=== PATIENT | female | born 1985 | race Caucasian/White ===

== ENCOUNTER 2023-08-03 04:41 | Outpatient (CLI) | payer OTHER ==
[2023-08-03 05:42] VITALS: BP 103/71
[2023-08-03 05:48] LABS: BASOPHILS % (AUTO) 0.3 %; EOSINOPHILS # (AUTO) 0.1 10^3/uL (0.0-0.7); EOSINOPHILS % (AUTO) 0.8 %; HCT - HEMATOCRIT 35.6 % (37.0-47.0); HGB - HEMOGLOBIN 11.5 g/dL (12.0-16.0); LYMPHOCYTES # (AUTO) 1.7 10^3/uL (1.5-3.5); LYMPHOCYTES % (AUTO) 12.8 %; MEAN CORPUSCULAR HEMOGLOBIN 29.3 pg (27.0-31.0); MEAN CORPUSCULAR HGB CONC 32.3 g/dL (32.0-36.0); MEAN CORPUSCULAR VOLUME 90.6 fL (81.0-99.0); MONOCYTES # (AUTO) 1.2 10^3/uL (0.0-1.0); MONOCYTES % (AUTO) 9.2 %; NEUTROPHILS # (AUTO) 10.2 10^3/uL (1.5-6.6); NEUTROPHILS % (AUTO) 76.4 %; PLT - PLATELET COUNT 306 10^3/uL (130-450); RED BLOOD COUNT 3.93 10^6/uL (4.20-5.40); RED CELL DISTRIBUTION WIDTH 13.5 % (12.0-15.0); WHITE BLOOD COUNT 13.3 x10^3/uL (4.8-10.8)
[2023-08-03] MEDS: LACTATED RINGERS 1,000 ML IV ONE (05:48)
[2023-08-03] MEDS: MAGNESIUM SULFATE 4 GRAM 4 GM/50 ML BAG IV ONE (06:35)
--- NOTE | 2023-08-03 06:51 | PROVIDER PROGRESS NOTE ---
- HPI Chief Complaint: Labor Current : Vital Signs Temperature 97.5 F L 08/03/23 05:00 Heart Rate 78 08/03/23 05:00 Respiratory Rate 08/03/23 05:00 Blood Pressure 103/71 08/03/23 05:00 Temperature 97.5 F L 08/03/23 05:00 Heart Rate 78 08/03/23 05:00 Respiratory Rate 08/03/23 05:00 Blood Pressure 103/71 08/03/23 05:00 O2 Saturation If not protocol: Oxygen Flow, liters/minute - Procedures OB Procedure Performed: NST Diagnosis/Indication for NST: labor NST Procedure: EFM: 150s, moderate variability, no decelerations, positive accelerations [place]: contractions q2m Performed and read 08/03/23 Service Date of procedure: 08/03/23 - Plan Plan: 38yo at 28.1w presenting with severe 8/10 abdominal pain. Denies leaking fluid or bleeding. Cramping has been ongoing but severe since about [address] She drove herself here as her is on his way via [place]. care at [facility] and complicated by AMA and large fibroids. Recent US 07/30/23 at [place] shows 15cm anterior lower uterine segment, 7.4cm anterior right lower uterine segment, 4.2cm anterior mid right fibroids. Med: anemia asthma Surg: LEEP NKDA Meds: Tylenol prn Fam: Noncontributory Social: , denies YUDY VSS Gen: Screaming and writhing in pain CV: Regular rate Resp: Breathing unlabored Abd: soft, tender to palpation Ext: nt Speculum: No pooling or bleeding SVE: closed FFN NEG US: pending, cervical length 5cm, cephalic 38yo at 28.1w with abdominal pain, threatened labor, large uterine fibroids. She does not appear to be in labor currently with long, closed cervix and negative FFN. Possible large fibroids causing pain or degenerating. She was started on magnesium sulfate during evaluation due to persistent painful uterine contractions every 2 minutes. - Appreciate [facility] L&D acceptance of patient. She is actually an [facility] patient. - If not in labor, likely needs pain control/evaluation for degenerating fibroids. Unable to monitor patient here with threatened labor due to gestation. Improved in triage after starting IVF LR bolus and magnesium sulfate 4g/2g. - FFN negative, ROMPlus obtained but did not provide result. Less concern for SROM. CBC, CMP benign. - Transfer via ambulance to [facility]
[2023-08-03] MEDS: MAGNESIUM SULFATE IN WATER 20 GM/500 ML IV.SOLN IV SCH (07:02)
[2023-08-03] MEDS: LACTATED RINGERS 1,000 ML IV SCH (07:09)
[2023-08-03 07:23] LABS: ALBUMIN 3.1 g/dL (3.2-5.5); ALBUMIN/GLOBULIN RATIO 0.9 (1.0-2.2); BILIRUBIN,TOTAL 0.3 mg/dL (0.2-1.0); CALCIUM 9.1 mg/dL (8.5-10.3); CREATININE 0.5 mg/dL (0.6-1.3); POTASSIUM 3.7 mmol/L (3.5-4.5); TOTAL PROTEIN 6.7 g/dL (6.4-8.9)
--- NOTE | 2023-08-03 08:05 | Ultrasound Report ---
PROCEDURE: OB Limited INDICATIONS: labor at 28wks OUTSIDE/PRIOR DATING DATA: The below data below was generated using the ultrasound HALEY of 10/25/2023 TECHNIQUE: Real-time scanning was performed of the fetus, with image documentation. Endovaginal scanning: Not performed COMPARISON: None. FINDINGS: A single living intrauterine gestation is present. Presentation: Vertex Placenta: Placental position is posterior, without previa. Amniotic fluid index: 15.9 cm, normal for gestational age. heart rate: 131 beats per minutes. Maternal cervical canal: 5.6 cm long; normal length is 2.5 cm or more. Estimated gestational age from initial scan: 28 weeks 1 day. Other: Large uterine fibroid along the anterior margin measuring 14.1 x 10.7 x 11.2 cm. IMPRESSION: Single living intrauterine at 28 weeks 1 day. Closed cervix measuring 5.6 cm. Amniotic fluid of 15.9 cm. 14 cm anterior uterine fibroid. Agree with preliminary interpretation provided to the ordering provider by the ultrasound technologis t. Agree with preliminary report. Reviewed by: Artemio Mcallister MD on 08/03/2023 8:03 AM PDT Approved by: Artemio Mcallister MD on 08/03/2023 8:03 AM PDT Station ID: [id number]
--- NOTE | 2023-08-03 08:06 | Ultrasound Report ---
PROCEDURE: OB Limited INDICATIONS: labor at 28wks OUTSIDE/PRIOR DATING DATA: The below data below was generated using the ultrasound HALEY of 10/25/2023 TECHNIQUE: Real-time scanning was performed of the fetus, with image documentation. Endovaginal scanning: Performed. COMPARISON: None. FINDINGS: A single living intrauterine gestation is present. Presentation: Vertex Placenta: Placental position is posterior, without previa. Amniotic fluid index: 15.9 cm, normal for gestational age. heart rate: 131 beats per minutes. Maternal cervical canal: 5.6 cm long; normal length is 2.5 cm or more. Estimated gestational age from initial scan: 28 weeks 1 day. Other: Large uterine fibroid along the anterior margin measuring 14.1 x 10.7 x 11.2 cm. IMPRESSION: Single living intrauterine at 28 weeks 1 day. Closed cervix measuring 5.6 cm. Amniotic fluid of 15.9 cm. 14 cm anterior uterine fibroid. Agree with preliminary interpretation provided to the ordering provider by the ultrasound technologis t. Agree with preliminary report. Reviewed by: Artemio Mcallister MD on 08/03/2023 8:04 AM PDT Approved by: Artemio Mcallister MD on 08/03/2023 8:04 AM PDT Station ID: [id number]
== END 2023-08-03 07:50 | disposition short-term general hospital (02) ==
LOC: WFO 04:41 → FBP 04:45 → WFO 07:50
PROVIDERS: ATTEND Obstetrics & Gynecology
DX: O47.03 False labor before 37 completed weeks of gestation, third trimester (principal); O34.13 Maternal care for benign tumor of corpus uteri, third trimester; D25.9 Leiomyoma of uterus, unspecified; Z3A.28 28 weeks gestation of pregnancy
CPT/HCPCS: 36415; 59025; 76815; 76817; 80053; 82731; 85025; 96361; 96365; 99215; J7120; 84112; J3475

== ENCOUNTER 2023-08-03 07:57 | Outpatient (CLI) | payer OTHER | END 2023-08-03 23:59 | disposition short-term general hospital (02) | LOC: EMS 07:57 | PROVIDERS: ATTEND Obstetrics & Gynecology | DX: O60.03 Preterm labor without delivery, third trimester (principal); Z3A.28 28 weeks gestation of pregnancy | CPT/HCPCS: A0425; A0426 ==